=== PATIENT | male | born 1940 | race Caucasian/White ===

== ENCOUNTER 2019-05-22 12:55 | Inpatient (IN) ==
[2019-05-22 14:08] LABS: URINE SOURCE CLEAN CATCH
[2019-05-22 14:15] LABS: BASO# 0.02 X1000 (0.0-0.2); BASO% 0.2 % (0.0-0.8); EOS# 0.15 X1000 (0.0-0.7); EOS% 1.5 % (0.0-10.0); HEMATOCRIT 38.4 % (42.0-52.0); HEMOGLOBIN 13.1 g/dL (14.0-18.0); IMM GRAN# 0.02 X1000 (0.0-0.04); IMM GRAN% 0.2 % (0.0-0.5); LYMPH# 2.66 X1000 (1.2-3.4); LYMPH% 25.7 % (20.5-51.1); MCH 31.6 PG (27-31); MCHC 34.1 g/dL (33-37); MCV 92.5 FL (81-99); MONO# 1.41 X1000 (0.11-0.59); MONO% 13.6 % (1.7-9.3); MPV 10.5 FL (7.4-10.4); NEUT# 6.08 X1000 (1.4-6.5); NEUT% 58.8 % (42.2-75.2); PLT 153 X1000 (130-400); RBC 4.15 XMIL (4.7-6.1); WBC 10.34 X1000 (4.8-10.8)
[2019-05-22 14:16] LABS: BILIRUBIN URINE NEGATIVE (NEGATIVE); BLOOD URINE NEGATIVE (NEGATIVE); COLOR STRAW; GLUCOSE URINE NEGATIVE (NEGATIVE); KETONE URINE NEGATIVE (NEGATIVE); LEUKOCYTES URINE NEGATIVE (NEGATIVE); NITRITE URINE NEGATIVE (NEGATIVE); PH URINE 6.5; PROTEIN URINE NEGATIVE (NEGATIVE); SP GRAVITY URINE 1.005; TURBIDITY URINE CLEAR (CLEAR); UROBILINOGEN URINE NORMAL (NORMAL)
[2019-05-22 14:18] LABS: UR EPITHELIAL CELLS <10 /HPF (<10); URINE BACTERIA NEGATIVE /HPF; URINE RBC <10 /HPF (<10); URINE WBC <10 /HPF (<10)
[2019-05-22 14:37] LABS: AGAP 13; ALB/GLOB RATIO 1.3; ALBUMIN 3.8 g/dL (3.5-5.0); ALKALINE PHOSPHATASE 83 U/L (32-122); BUN 12 mg/dL (8-22); CALCIUM 9.6 mg/dL (8.8-10.2); CHLORIDE 95 mmol/L (98-107); COSMO 276; CREATININE 0.8 mg/dL (0.7-1.2); ESTIMATED GFR > 60; GLUCOSE 140 mg/dL (70-104); GOT 54 U/L (10-34); GPT 56 U/L (10-44); POTASSIUM 4.1 mmol/L (3.5-5.1); SODIUM 137 mmol/L (136-145); TCO2 29 mmol/L (25-35); TOTAL BILIRUBIN 0.76 mg/dL (0.20-1.00); TOTAL PROTEIN 6.7 g/dL (6.3-8.3)
[2019-05-22 14:47] LABS: UR AMPHETAMINES QUAL NONE DETECTED (NONE DETECT); UR BARBITUATES QUAL NONE DETECTED (NONE DETECT); UR BENZODIAZEPIN QUAL NONE DETECTED (NONE DETECT); UR CANNABINOIDS QUAL NONE DETECTED (NONE DETECT); UR COCAINE QUAL NONE DETECTED (NONE DETECT); UR METHADONE QUAL NONE DETECTED (NONE DETECT); UR OPIATES QUAL NONE DETECTED (NONE DETECT); UR OXYCODONE QUAL NONE DETECTED (NONE DETECT); UR PCP QUAL NONE DETECTED (NONE DETECT)
[2019-05-22] MEDS ORDERED: NS 1,000 ML IV ONE (17:37)
[2019-05-22] MEDS ORDERED: M.V.I.-12 10 ML, FOLIC ACID 1 MG, MAGNESIUM SULFATE 1 GM, THIAMINE 100 MG in NS 1,000 ML IV ONE (17:37)
--- NOTE | 2019-05-22 18:21 | Diag Imaging Result Doc PS360 ---
CHEST-2 VIEWS - 05/22/2019 INDICATION: short of breath COMPARISON: None FINDINGS: There are CABG changes. There is advanced COPD. There is mild cardiomegaly. There are increased markings in the lung bases. These are nonspecific, possibly representing mild edema or bronchitis. There is pleural-based scarring with blunting in the lung bases. IMPRESSION: COPD. Cardiomegaly. Nonspecific markings in the lung bases. Electronically signed by Ankur Vasquez 05/22/2019 6:18 PM
--- NOTE | 2019-05-22 18:32 | PROVIDER DOCUMENTATION ---
HPI-General Adult - General Chief Complaint: General Adult Stated Complaint: GENERAL ADULT Time Seen by Provider: 05/22/19 17:36 Source: patient Allergies/Adverse Reactions: Patient Allergies Allergy/AdvReac Type Severity Reaction Status Date / Time No Known Allergies Allergy Verified 05/22/19 18:21 Home Medications: Home Medication List Medication Instructions Recorded Confirmed Last Taken Type ATORVAstatin [Lipitor] 40 mg PO QHS 05/22/19 05/22/19 1 Day Ago History ~05/21/19 Carvedilol [Coreg] 3.125 mg PO QAM 05/22/19 05/22/19 1 Day Ago History ~05/21/19 Furosemide [Lasix] 40 mg PO DAILY 05/22/19 05/22/19 05/22/19 History Potassium Chloride 8 meq PO DAILY 05/22/19 05/22/19 1 Day Ago History ~05/21/19 - History of Present Illness -Gen Adult Nature of Presenting Problems: The pt is a 79 yr old M with a hx of HTN, s/p CABG 8 yrs ago, who presents today with a several day hx of "feeling dehydrated"and having an elevated HR. The pt reports this story began last week, when he indulged in a beer binge with some friends for several days. After he was done, he felt as though he was dry, and also noted that his HR seemed to be running higher than usual. After trying to replenish his fluids at home, he ended up at [facility] today, and was sent to the ED to have IV fluids. He denies chest pain or SOB, just states he didn't feel well. Onset/Duration: reports: 5 days ago Timing: reports: still present Modifying Factors: improves with: nothing Associated Symptoms: reports: denies symptoms Similar Symptoms Previously?: No Review of Systems - Adult - REVIEW OF SYSTEMS - ADULT Constitutional: reports: no symptoms reported Eyes: reports: no symptoms reported Ears, Nose, Mouth & Throat: reports: no symptoms reported Cardiovascular: reports: see HPI Respiratory: reports: no symptoms reported Gastrointestinal: reports: no symptoms reported Genitourinary: reports: no symptoms reported Musculoskeletal: reports: no symptoms reported Integumentary: reports: no symptoms reported Neurological: reports: no symptoms reported Psychiatric: reports: no symptoms reported Past History - Adult - PAST MEDICAL HISTORY-ADULT Review of Records: reports: Old Records Reviewed, Nursing Assessment Review Cardiovascular: reports: HTN - PRIOR SURGERIES/PROCEDURES Surgical/Procedure History: reports: reviewed, not pertinent - FAMILY HISTORY Family History: reviewed, not pertinent - SOCIAL HISTORY Substance Use: none presently/history of abuse Physical Exam-General - PHYSICAL EXAM-ADULT Initial Vital Signs Reviewed: Yes - CONSTITUTIONAL General Appearance: appears well, alert, no apparent distress - EYES Eyes: PERRL/EOMI - HEAD, EARS, NOSE, MOUTH & THROAT HENMT: normocephalic/atraumatic, moist mucous membranes - RESPIRATORY Respiratory: chest non-tender, lungs clear, normal breath sounds - CARDIOVASCULAR Cardiovascular: tachycardia - GASTROINTESTINAL (ABDOMEN) Abdominal Exam: normal bowel sounds, non tender, soft - MUSCULOSKELETAL Extremity: no pedal edema - SKIN Integumentary: normal color, normal turgor, warm/dry - NEUROLOGIC Neurologic: grossly normal, no motor/sensory deficits - PSYCHIATRIC Psych/Mental Status: normal mood/affect, oriented x 3 Progress - PLAN OF CARE/RESULTS Progress/Plan/Lab Results: Vital Signs - 8 hr 05/22/19 13:11 05/22/19 14:30 05/22/19 16:36 Temperature 97.6 F 97.6 F 97.4 F L Pulse Rate 83 102 H 113 H Respiratory Rate 16 20 20 Blood Pressure 150/53 119/71 112/71 O2 Sat by Pulse Oximetry 96 95 97 Laboratory Results - last 24 hr 05/22/19 05/22/19 05/22/19 13:36 13:36 13:36 WBC 10.34 RBC 4.15 L Hgb 13.1 L Hct 38.4 L MCV 92.5 MCH 31.6 H MCHC 34.1 RDW Std Deviation 14.0 Plt Count 153 MPV 10.5 H Immature Gran % (Auto) 0.2 Neut % (Auto) 58.8 Lymph % (Auto) 25.7 [place] % (Auto) 13.6 H Eos % (Auto) 1.5 Baso % (Auto) 0.2 Immature Gran # (Auto) 0.02 Neut # (Auto) 6.08 Lymph # (Auto) 2.66 [place] # (Auto) 1.41 H Eos # (Auto) 0.15 Baso # (Auto) 0.02 Sodium 137 Potassium 4.1 Chloride 95 L Carbon Dioxide 29 Anion Gap 13 BUN 12 Creatinine 0.8 Estimated GFR/1.73 m2 > 60 BUN/Creatinine Ratio 15 Glucose 140 H Calculated Osmolality 276 Calcium 9.6 Total Bilirubin 0.76 AST 54 H ALT 56 H Alkaline Phosphatase 83 Total Protein 6.7 Albumin 3.8 Globulin 2.9 Albumin/Globulin Ratio 1.3 Urine Source Urine Color Urine Turbidity Urine pH Ur Specific [place] Urine Protein Ur Glucose (Stick) Ur Ketones (Stick) Urine Blood Urine Nitrite Urine Bilirubin Urobilinogen Dipstick Urine Leukocytes Urine WBC (Auto) Urine RBC (Auto) U Epithel Cells (Auto) Urine Bacteria (Auto) Urine Opiates Screen Ur Oxycodone Screen Ur Methadone, Qual Ur Barbiturates Screen Ur Phencyclidine Scrn Ur Amphetamines Screen U Benzodiazepines Scrn Urine Cocaine Screen U Cannabinoids Screen Plasma/Serum Ethyl Alc 05/22/19 05/22/19 13:41 13:41 WBC RBC Hgb Hct MCV MCH MCHC RDW Std Deviation Plt Count MPV Immature Gran % (Auto) Neut % (Auto) Lymph % (Auto) [place] % (Auto) Eos % (Auto) Baso % (Auto) Immature Gran # (Auto) Neut # (Auto) Lymph # (Auto) [place] # (Auto) Eos # (Auto) Baso # (Auto) Sodium Potassium Chloride Carbon Dioxide Anion Gap BUN Creatinine Estimated GFR/1.73 m2 BUN/Creatinine Ratio Glucose Calculated Osmolality Calcium Total Bilirubin AST ALT Alkaline Phosphatase Total Protein Albumin Globulin Albumin/Globulin Ratio Urine Source CLEAN CATCH Urine Color STRAW Urine Turbidity CLEAR Urine pH 6.5 Ur Specific [place] 1.005 Urine Protein NEGATIVE Ur Glucose (Stick) NEGATIVE Ur Ketones (Stick) NEGATIVE Urine Blood NEGATIVE Urine Nitrite NEGATIVE Urine Bilirubin NEGATIVE Urobilinogen Dipstick NORMAL Urine Leukocytes NEGATIVE Urine WBC (Auto) <10 Urine RBC (Auto) <10 U Epithel Cells (Auto) <10 Urine Bacteria (Auto) NEGATIVE Urine Opiates Screen NONE DETECTED Ur Oxycodone Screen NONE DETECTED Ur Methadone, Qual NONE DETECTED Ur Barbiturates Screen NONE DETECTED Ur Phencyclidine Scrn NONE DETECTED Ur Amphetamines Screen NONE DETECTED U Benzodiazepines Scrn NONE DETECTED Urine Cocaine Screen NONE DETECTED U Cannabinoids Screen NONE DETECTED Plasma/Serum Ethyl Alc Orders Category Date Time Status Nursing- Obtain EKG ONCE Care 05/22/19 17:38 Active Nursing- Obtain EKG ONCE Care 05/22/19 17:38 Active CHEST-2 VIEWS [RAD] Stat Exams 05/22/19 17:38 Completed ALCOHOL BLOOD Stat Lab 05/22/19 13:36 Completed CBC WITH ELECTRONIC DIFF [HEME] Stat Lab 05/22/19 13:36 Completed CK PROFILE [SP CHEM] Stat Lab 05/22/19 17:38 Ordered COMPREHENSIVE METABOLIC PANEL [CHEM] Stat Lab 05/22/19 13:36 Completed FOLATE Stat Lab 05/22/19 17:38 Ordered MAGNESIUM [CHEM] Stat Lab 05/22/19 17:38 Ordered TROPONIN T HIGH SENSITIVITY Stat Lab 05/22/19 17:38 Ordered UA NIMS W/REFLEX CULT [URINALYSIS] Stat Lab 05/22/19 13:41 Completed URINE DRUG SCREEN Stat Lab 05/22/19 13:41 Completed 0.9% Sodium Chloride Inj [Ns] 1,000 ml Med 05/22/19 17:37 Active IV 999 mls/hr Mvi [M.v.i.-12] 10 ml Med 05/22/19 17:37 Active Folic Acid 1 mg Magnesium Sulfate 1 gm Thiamine 100 mg 0.9% Sodium Chloride Inj [Ns] 1,000 ml IV NOW EKG [EKG] Stat Ther 05/22/19 17:38 Ordered Pt's labs are generally unremarkable; CXR has no significant acute findings, but an EKG reveals atrial fibrillation with RBBB, and there are no prior EKGs to compare this to. The pt states he has never been told he had atrial fibrillation. Discussed the case with the hospitalist - give this finding, and it's likely new onset, pt will be admitted for further management. Spoke with pt, who did want to go home, but also understands the situation and is willing to stay. Result Diagrams: 05/22/19 13:36 05/22/19 13:36 - EKG 1 Time of EKG reading by physician:: 19:15 EKG Read and Signed by:: Annie Alvarez EKG Interpretation (*Must complete 3 of following elements*): Abnormal Rate: 97 Rhythm: atrial fibrillation [place]: normal QRS: RBB ST Wave: non-specific ST changes Prior EKG Comparison: no prior EKG - XRAY 1 XRAY Study: Chest Impression: See EMR Report (COPD, Cardiomegaly) - CONSULTS/PCP/HOSPITALIST Notification #1 *Consult/PCP/Hospitalist*: Dr. Field Time Discussed: 21:24 Consult Disposition: Admit Departure - Departure Date of Disposition Decision: 05/22/19 Time of Disposition Decision: 21:26 DIAGNOSIS: Atrial fibrillation Qualifiers: Atrial fibrillation type: unspecified Qualified Code(s): I48.91 - Unspecified atrial fibrillation Disposition: ADMITTED INPATIENT 09 Certified Medical Emergency: Emergent Condition: Fair Referrals and Follow-Ups: Denver Herrera MD [Primary Care Provider] - Discharge Education: Steps to Quit Smoking, [id number] - Critical Care Note This patient required my direct & personal management of CC.: No Attestation - Physician/ KALANI Attestation Patient care was provided by Advanced Practice Provider:: No The physician spent face to face time with patient:: Yes Advanced Practice Provider documentation review:: Supervising physician onsite and consulted in the evaluation and care of this patient. The physician did have a face to face encounter with the patient.
[2019-05-22 19:26] LABS: MAGNESIUM 2.2 mg/dL (1.5-2.7)
[2019-05-22 19:43] LABS: CK INDEX 1.6 (0.0-2.5); CK-MB 5.03 ng/mL (0.0-5.0)
[2019-05-22] MEDS ORDERED: ZOFRAN IV PRN (21:25)
[2019-05-22] MEDS ORDERED: ATIVAN IV PRN (21:44)
[2019-05-22] MEDS ORDERED: XOPENEX NEB INH PRN (22:04)
[2019-05-22] MEDS ORDERED: NS NEB INH SCH (22:15)
[2019-05-22 22:18] LABS: CK INDEX 1.6 (0.0-2.5); CK-MB 4.96 ng/mL (0.0-5.0)
[2019-05-22] MEDS: COREG PO SCH (23:41)
[2019-05-22] MEDS: NS 1,000 ML IV SCH (23:42)
--- NOTE | 2019-05-23 01:30 | HISTORY AND PHYSICAL ---
PRIMARY CARE PROVIDER: Dr. Miranda. MACHINE SILK SCREEN PRINTER: Dr. Anders. CHIEF COMPLAINT: Dehydrated. HISTORY OF PRESENT ILLNESS: Mr. Brunson is a 79-year-old male who reports his only past medical history was a CABG that he had 8 years ago. He has been on the same medications since that time of his discharge. He reports that he binge drinks about 4 times per year. He reports about a week ago he went on a big binger with some of his friends and he was having about a 12 pack of beer per day. His last drink was last . He went to the Urgent Care because he felt dehydrated, they told him that his heart rate was fast. He did not feel that he could drive to the ED so EMS was called. He was found to be in atrial fibrillation, but not RVR. His chest x- ray showed COPD and cardiomegaly, mild transaminitis. Alcohol level was 0. Tox screen was clean. Two sets of troponins have been at 26 and 25. CKs are 324 and 302. He was given a banana bag in the ED. We will continue with IV hydration. I will give him a dose of his home Coreg now, continue him on IV fluids throughout the night. We will check an echocardiogram and consult Cardiology in the a.m. We will place him on PVC, watch him closely for any atrial fibrillation with RVR or DTs. PAST MEDICAL HISTORY: Coronary artery disease status post CABG 8 years ago. Other than that he was really not sure what his past medical history wa. All his medications he reports have not been changed since he got discharged after his CABG. PAST SURGERY HISTORY: CABG 8 years ago, appendectomy, skin cancer removal that he reports was malignant from his lower abdomen. FAMILY HISTORY: Brother with a CABG. Mother from breast cancer. SOCIAL HISTORY: He reports he does not drink in general; however, he does binge drink he reports about 4 times a year. He does do 10 to 15 cigarettes per day and has done so since the age of 16 or 17. He is . He has 1 child who is grown. He currently lives alone. He is retired for from being an industrial electrician journeyman. HOME MEDICATIONS: 1. Coreg 3.125 mg p.o. q.a.m. 2. Lipitor 40 mg p.o. at bedtime. 3. Lasix 40 mg p.o. daily. 4. Potassium chloride 8 mEq p.o. daily. PHYSICAL EXAMINATION: VITAL SIGNS: Temperature is 97.6 degrees, heart rate 104, respirations 21, blood pressure 113/63, O2 is 98% on room air. GENERAL: Mr. Brunson is a pleasant 79-year-old male who is sitting on the stretcher in no acute distress. HEENT: Atraumatic, normocephalic. PERRL. NECK: Supple. Trachea midline. CARDIOVASCULAR: S1, S2 appreciated. No murmurs, gallops or rubs noted. RESPIRATORY: Lung sounds some very mild expiratory wheezes to the upper bases. He reports no history of COPD; however, his chest x-ray does show COPD, not on any inhalers at home. ABDOMEN: Soft, nontender, nondistended. Positive bowel sounds in 4 quadrants. EXTREMITIES: Lower extremities negative for edema. DIAGNOSTIC DATA: Chest x-ray, COPD, cardiomegaly. EKG showed atrial fibrillation without RVR at 120 beats per minute. LABORATORY DATA: White count 10, hemoglobin and hematocrit 13 and 38, platelet count is 153,000. Sodium 137, potassium 4.1, BUN 12, creatinine 0.8, blood glucose is 140. AST 54. ALT 56. CK 324. Second troponin is 25. Urinalysis is negative. Alcohol level none. Toxicology screen is clean. ASSESSMENT AND PLAN: 1. New onset atrial fibrillation, he is not in RVR. We will give him a dose of home Coreg now. Check an echocardiogram and consult Cardiology in the a.m. We will watch him on PVC. 2. Binge drinking on beer about 4 times per year. His last binge was last week. His last drink was last . He was given a banana bag in the ED. We will provide him p.r.n. Ativan, watch him closely for any DTs. 3. Coronary artery disease status post CABG 8 years ago. He reports no medication changes since that time. 4. Tobacco use and abuse. Will need to continued education on smoking cessation. 5. Known abdominal aortic aneurysm. His last aortic ultrasound was on 09/01/2017 that showed the distal aorta measured 2.7 x 2.9 cm, similar to his prior exam in 2017. 6. Undiagnosed COPD. He does have some mild expiratory wheezes most heard in the upper bases bilaterally. He does not report any difficulty breathing. He did not know he was wheezing. He is not on any inhalers at home. We will provide him supplemental O2 as needed and Xopenex p.r.n. 7. Cardiomegaly seen on chest x-ray. I do not have a current echocardiogram. We will order an echocardiogram for in the morning. 8. Mild transaminitis possibly secondary to his most recent binge drinking. We will recheck in the a.m. We will do an abdominal ultrasound if needed in the a.m. He does not complain of any abdominal pain. 9. Further recommendation to follow physician evaluation, laboratory and diagnostic data. Dictated by PRANEETH Og for Pawel Field MD cc: MD Wade Fontanez MD Clement Okinedo, MD
[2019-05-23] MEDS: NS 1,000 ML IV SCH (04:41)
--- NOTE | 2019-05-23 05:44 | EKG Report ---
Test Performed on : 05/22/2019 7:13:38 PM Test Reason : Chest Pain Blood Pressure : / mmHG Vent. Rate : 097 BPM Atrial Rate : 105 BPM P-R Int : 000 ms QRS Dur : 140 ms QT Int : 410 ms P-R-T Axes : 000 135 013 degrees QTc Int : 520 ms Atrial fibrillation. Right bundle branch block Possible Lateral infarct , age undetermined Inferior infarct , age undetermined Abnormal ECG No previous ECGs available Unconfirmed Result
[2019-05-23 06:18] LABS: BASO# 0.01 X1000 (0.0-0.2); BASO% 0.1 % (0.0-0.8); EOS# 0.18 X1000 (0.0-0.7); EOS% 2.4 % (0.0-10.0); HEMATOCRIT 34.2 % (42.0-52.0); HEMOGLOBIN 11.2 g/dL (14.0-18.0); LYMPH# 2.27 X1000 (1.2-3.4); LYMPH% 30.2 % (20.5-51.1); MCH 31.2 PG (27-31); MCHC 32.7 g/dL (33-37); MCV 95.3 FL (81-99); MONO# 1.25 X1000 (0.11-0.59); MONO% 16.6 % (1.7-9.3); MPV 10.2 FL (7.4-10.4); NEUT# 3.81 X1000 (1.4-6.5); NEUT% 50.7 % (42.2-75.2); PLT 127 X1000 (130-400); RBC 3.59 XMIL (4.7-6.1); RDW 14.3 % (11.5-14.5); WBC 7.52 X1000 (4.8-10.8)
[2019-05-23 06:33] LABS: AGAP 9; ALB/GLOB RATIO 1.3; ALBUMIN 3.1 g/dL (3.5-5.0); ALKALINE PHOSPHATASE 64 U/L (32-122); BUN 10 mg/dL (8-22); CALCIUM 8.5 mg/dL (8.8-10.2); CHLORIDE 103 mmol/L (98-107); COSMO 279; CREATININE 0.8 mg/dL (0.7-1.2); ESTIMATED GFR > 60; GLUCOSE 100 mg/dL (70-104); GOT 38 U/L (10-34); GPT 41 U/L (10-44); MAGNESIUM 2.3 mg/dL (1.5-2.7); POTASSIUM 3.9 mmol/L (3.5-5.1); SODIUM 140 mmol/L (136-145); TCO2 28 mmol/L (25-35); TOTAL PROTEIN 5.4 g/dL (6.3-8.3)
--- NOTE | 2019-05-23 07:33 | Diag Imaging Result Doc PS360 ---
CHEST-PORTABLE - 05/23/2019 INDICATION: follow up COMPARISON: 05/22/2019 FINDINGS: There is no change from prior. IMPRESSION: No change from prior. Electronically signed by Ankur Vasquez 05/23/2019 7:31 AM
--- NOTE | 2019-05-23 08:15 | EKG Report ---
Test Performed on : 05/23/2019 07:33:35 AM Test Reason : afib Blood Pressure : / mmHG Vent. Rate : 076 BPM Atrial Rate : 098 BPM P-R Int : 000 ms QRS Dur : 148 ms QT Int : 422 ms P-R-T Axes : 000 159 001 degrees QTc Int : 474 ms Atrial fibrillation. with a competing junctional pacemaker. Right bundle branch block Lateral infarct (cited on or before 22-MAY-2019) Possible Inferior infarct (cited on or before 22-MAY-2019) Abnormal ECG When compared with ECG of 22-MAY-2019 19:13, (Unconfirmed) No significant change was found Confirmed by Jimenez VILLALTA, Tye Munoz ([id number]) on 05/24/2019 2:34:02 PM
[2019-05-23] MEDS: COREG PO SCH ×2 (09:50→21:11)
[2019-05-23] MEDS: MICRO-K PO SCH (09:50)
[2019-05-23] MEDS: LASIX PO SCH (09:50)
--- NOTE | 2019-05-23 10:38 | PROGRESS NOTE ---
DATE: 05/23/2019 SUBJECTIVE: This patient is sitting on the bed. He is not complaining of chest pain or shortness of breath. He is still in atrial fibrillation, not RVR. Basically, this patient came to the emergency department because he felt dehydrated due to a drinking binge. He is feeling a little bit better now. His CK level was elevated, likely due to dehydration. He was found to be in atrial fibrillation, but not RVR. X-ray showed possible COPD and cardiomegaly. We asked for an echocardiogram. We put this patient on fluids, but also he has been placed on Lasix, so I will wait for Cardiology recommendations about this. He is a smoker. OBJECTIVE: Vital Signs: Temperature 97.3 degrees, pulse 94, respiratory rate 20, blood pressure 126/72, oxygen saturation 94% on room air. HEENT: Head normocephalic. No trauma. PERRLA. Neck: Supple. Central trachea. Cardiovascular: Irregularly irregular rate and rhythm. Chest: Clear to auscultation. Some end expiratory wheezing, faint. Abdomen: Soft, nontender, nondistended. No hepatosplenomegaly. Extremities: Trace lower extremity edema. No clubbing. No cyanosis. Neurological: The patient is awake, alert. He is oriented x3. No focal deficits. LABORATORY DATA: WBC 7.5, hemoglobin 11.2, hematocrit 34.2, platelets 127,000. Sodium 140, potassium 3.9, chloride 103, bicarbonate 28, BUN 10, creatinine 0.8, glucose 100, calcium 8.5. AST 38, ALT 41, alkaline phosphatase 64, albumin 3.1. ASSESSMENT AND PLAN: 1. New-onset atrial fibrillation with no rapid ventricular response. I will continue with the same management for now pending Cardiology evaluation and recommendations. Probably this patient will need to be on anticoagulation from now on, but he has an abdominal aneurysm. 2. Binge drinking on beer about 4 times a year. His last binge was last week, and he came in because he was basically dehydrated. He was given a banana bag in the emergency department. He will be on as needed Ativan, and we will continue to monitor this patient closely for withdrawals. 3. History of coronary artery disease, status post coronary artery bypass graft 8 years ago. Aware. 4. Tobacco use and abuse. This patient has been highly advised against tobacco use. I will continue with daily cessation education. 5. Known abdominal aortic aneurysm. His last ultrasound apparently was on 09/01/2017 and showed that the distal aorta measured 2.7 x 2.9 cm, similar to prior exam in 1017. 6. Possible chronic obstructive pulmonary disease. Continue with the same management. 7. Cardiomegaly seen on the x-ray. Pending echocardiogram. 8. Mild transaminitis, likely secondary to alcohol use. It is getting better. cc: Esteban Chahal MD
--- NOTE | 2019-05-23 10:55 | EKG Report ---
Test Performed on : 05/23/2019 10:31:45 AM Test Reason : afib Blood Pressure : / mmHG Vent. Rate : 091 BPM Atrial Rate : 100 BPM P-R Int : 000 ms QRS Dur : 138 ms QT Int : 400 ms P-R-T Axes : 000 218 016 degrees QTc Int : 492 ms Undetermined rhythm Right bundle branch block Inferior infarct (cited on or before 22-MAY-2019) Abnormal ECG When compared with ECG of 23-MAY-2019 07:33, (Unconfirmed) Current undetermined rhythm precludes rhythm comparison, needs review Questionable change in initial forces of Inferior leads Confirmed by Jimenez VILLALTA, Tye Munoz ([id number]) on 05/24/2019 2:34:32 PM
--- NOTE | 2019-05-23 12:23 | CARDIOLOGY CONSULTATION ---
DATE: 05/23/2019 REASON FOR CONSULTATION: Cardiology was consulted for atrial fibrillation. HISTORY OF PRESENT ILLNESS: Mr. Brunson is a 79-year-old gentleman who has history of coronary artery disease, coronary artery bypass grafting, hypertension. Procedure done 8 years back. He comes to the emergency room as he says he was dehydrated. He reports having episodes of binge drinking for the last one week. He has been drinking 12 beers a day with his friends. He went to the urgent care because he felt dehydrated. He also had episodes of palpitations. He was found to be in atrial fibrillation, came to the emergency room and was admitted. Chest x-ray revealed cardiomegaly, COPD. Mild transaminitis, alcohol level was negative. Tox screen was clean. Two sets of troponins were negative. CKs were 324 and 308. He was given a banana bag and was continued with IV hydration. He denies any chest pain suggestive of angina. He had episodes of these palpitations which he had noticed during his binge drinking. REVIEW OF SYSTEMS: A 14-point review of systems was done. GI System: There is no history of nausea, vomiting, diarrhea. There is no history of hematemesis or melena. Central Nervous System: No focal weakness to suggest a CVA or TIA. Genitourinary System: There is no dysuria or hematuria. PAST MEDICAL HISTORY: 1. Coronary artery disease status post coronary artery bypass grafting with left internal mammary artery to left anterior descending artery, saphenous vein graft to obtuse marginal. This was done in 2008. Prior to that, he had myocardial infarction and stent placement in 1998. 2. Hypertension. 3. Hyperlipidemia. 4. Alcohol abuse. 5. History of tobacco abuse. HOME MEDICATIONS: 1. Aspirin. 2. Klor-Con. 3. Lasix 20 mg a day. 4. Coreg 12.5. 5. Lipitor 40 mg a day. ALLERGIES: He is not known to be allergic to any medication. PHYSICAL EXAMINATION: Cardiac: Blood pressure was 112/60. First and second heart sounds were heard. There was no S3 gallop. Respiratory System: Normal air entry. There is no crepitations or rhonchi. Abdomen: Soft, nontender. There was no guarding or rigidity. Bowel sounds were heard. Central Nervous System: Alert and was moving all 4 extremities. Examination of extremities revealed no pedal edema. HEENT: Atraumatic, normocephalic. Pupils were equal and reacting to light. LABORATORY EXAMINATION: Sodium 140, potassium 3.9, BUN 10, creatinine 0.8. Cardiac enzymes troponin T high sensitivity was negative. WBC 7.5, hemoglobin 11.2, hematocrit 34, platelet count of 127. ASSESSMENT AND PLAN: Mr. Marcial Brunson is a 42-year-old gentleman with history of coronary artery disease, coronary artery bypass grafting, hypertension, hyperlipidemia. He smokes and had an episode of binge drinking as above. He found himself noted to be dehydrated. He came to the emergency and was noted to be in atrial fibrillation. RECOMMENDATIONS: 1. He was on Coreg 12.5 mg twice daily. We will restart him on Coreg. 2. EKG revealed atrial fibrillation, right bundle branch block, nonspecific ST-T changes. He does not complain of chest pain. Cardiac enzymes are negative. We will get an echocardiogram to assess cardiac and valvular function. We will also get a Cardiolite stress test to assess for and rule out ischemia. 3. As far as stroke prophylaxis is concerned, he has elevated CHADS2-VASc score. I will decrease his aspirin to 81 mg a day and add Eliquis 5 mg twice daily. 4. We will make followup arrangements to see Dr. Anders as an outpatient. 5. As far as atrial fibrillation is concerned, I suspect it is secondary to his binge drinking, which probably will revert to normal rhythm. Regardless we will follow up as an outpatient. cc: Wayne Miranda MD
[2019-05-23] MEDS: ASPIRIN PO SCH (12:59)
[2019-05-23] MEDS: MIRALAX PO SCH ×2 (18:15→21:10)
[2019-05-23] MEDS ORDERED: LIPITOR PO SCH (21:00)
[2019-05-23] MEDS: ELIQUIS PO SCH (21:11)
--- NOTE | 2019-05-24 07:22 | EKG Report ---
Test Performed on : 05/24/2019 06:50:15 AM Test Reason : afib Blood Pressure : / mmHG Vent. Rate : 108 BPM Atrial Rate : 113 BPM P-R Int : 000 ms QRS Dur : 142 ms QT Int : 370 ms P-R-T Axes : 000 188 -15 degrees QTc Int : 495 ms Atrial fibrillation. with rapid ventricular response. Right bundle branch block Inferior infarct (cited on or before 22-MAY-2019) Abnormal ECG When compared with ECG of 23-MAY-2019 10:31, (Unconfirmed) Previous ECG has undetermined rhythm, needs review Inverted T waves have replaced nonspecific T wave abnormality in Inferior leads Confirmed by Jimenez VILLALTA, Tye Munoz ([id number]) on 05/24/2019 2:35:46 PM
[2019-05-24] MEDS: MICRO-K PO SCH (08:16)
[2019-05-24] MEDS: ASPIRIN PO SCH (08:16)
[2019-05-24] MEDS: ELIQUIS PO SCH (08:17)
[2019-05-24] MEDS ORDERED: LEXISCAN ONE (08:30)
[2019-05-24] MEDS: MIRALAX PO SCH (10:30)
[2019-05-24] MEDS: LASIX PO SCH (10:30)
[2019-05-24] MEDS: COREG PO SCH (10:30)
--- NOTE | 2019-05-24 10:49 | ECHO REPORT ---
ORDER DATE: 05/23/2019 INDICATION: New atrial fibrillation. FINDINGS: 1. There is mild biatrial enlargement. 2. Mild tricuspid regurgitation. The RV systolic pressure is 36. 3. Normal RV size and systolic function. 4. No significant pulmonic insufficiency. 5. No mitral prolapse. Suggestion of [id number] mitral regurgitation. No clear evidence of stenosis. 6. Normal LV size, end-diastolic dimension of 4.8 cm. Mild left ventricular hypertrophy with a interventricular septal wall thickness of 1.3 cm. Normal LV systolic function. Estimated EF is 65% with normal wall motion. 7. Aortic valve is somewhat calcific but it seems to open reasonably well. There is no significant stenosis or insufficiency. 8. Aorta appears normal in visualized segments. 9. No pericardial effusion seen. 10. During the course of the study, the patient appears to be in normal sinus rhythm. cc: Bereket Campa MD
[2019-05-24 12:30] VITALS: BP 122/62
--- NOTE | 2019-05-24 13:43 | Diag Imaging Result Document ---
PROCEDURE NAME: MYOCARDIAL PERF SCAN, STR/REST - 05/23/2019 PROCEDURE: Lexiscan Cardiolite stress test. DESCRIPTION OF PROCEDURE IN DETAIL: Baseline electrocardiogram revealed atrial fibrillation, right bundle branch block. Cardiolite was injected. Gated SPECT images were obtained in standard views. Images were obtained in standard views. There was no chest pain. Stress electrocardiogram was negative for ischemia. Images revealed chest wall attenuation. There is severe grade, large-sized, fixed defect in the inferior wall diagnostic of infarct or scar. In addition, there is fixed defect in the inferolateral wall diagnostic of infarct or scar. There is also a fixed defect in the left ventricular apex. There is fixed defect in the distal anteroapical wall. There is no evidence of ischemia. Left ventricular ejection fraction by gated SPECT was 53%. CONCLUSIONS: 1. No chest pain. 2. Baseline atrial fibrillation, negative Lexiscan stress electrocardiogram. 3. Myocardial perfusion images revealed no evidence of ischemia. 4. There is large size, fixed defect in the inferior wall, in the distal anteroapical wall, and in the inferolateral wall diagnostic of infarct or scar. Left ventricular ejection fraction by gated SPECT was 53%. cc: MD Meak Fontanez PA
--- NOTE | 2019-05-25 14:28 | DISCHARGE SUMMARY ---
ADMISSION DATE: 05/22/2019 DISCHARGE DATE: 05/24/2019 DISCHARGE DIAGNOSES: 1. New onset atrial fibrillation. 2. Dehydration, resolved. 3. Binge drinking on beer for a few days, 4 times a year or so. 4. History of coronary artery disease status post coronary artery bypass graft 8 years ago. 5. Tobacco use and abuse. 6. Abdominal aortic aneurysm. 7. Possible chronic obstructive pulmonary disease. 8. Cardiomegaly seen on x-ray. 9. Mild transaminitis. PROCEDURES PERFORMED: 1. Chest x-ray dated 05/22/2019 impression: COPD, cardiomegaly, nonspecific markings in the lung bases. 2. Chest x-ray dated 05/23/2019 impression: No change from prior. 3. Echocardiogram dated 05/23/2019: Ejection fraction 65% with normal wall motion. Mild to moderate mitral regurgitation. No evidence of stenosis. Right ventricular systolic pressure is 36. 4. Stress test dated 05/23/2019 conclusion: No chest pain, baseline atrial fibrillation, negative Lexiscan stress electrocardiogram, myocardial perfusion images revealed no evidence of ischemia. There is a large fixed defect in the inferior wall, in the distal anteroapical wall, and the inferolateral wall diagnostic of infarct or scar. The left ventricular ejection fraction by gated SPECT was 53%. HOSPITAL COURSE: A 79-year-old male with a past medical history of CABG 8 years ago, who has been on the same medications since the time of his discharge. He reported that he binge drinks about 4 times per year. He was admitted on 05/22/2019. He reported that about a week ago he went to a big binger with some of his friends, and he was having about a 12 pack of beer per day. His last drink was last . He went to the Urgent Care because he felt dehydrated. They told him that his heart rate was fast. He did not feel that he could drive to the ED, so EMS was called. He was found to be in atrial fibrillation, but no RVR. His chest x-ray showed COPD, cardiomegaly, mild transaminitis. Alcohol level was zero. Toxicology screen was clean. Two sets of troponins have been at 26 and 25, CK 324 and 302. He was given a banana bag in the ED. He started getting some IV hydration. We started this patient back on his medications. Cardiology Department was consulted. They continue with his home medication and, on top of that, they started this patient on anticoagulation. The patient today is asymptomatic. We did an echocardiogram and also a stress test that did not show any acute process, but he does have a fixed defect already. He will be treated medically and he will follow up with Dr. Anders as an outpatient. PHYSICAL EXAMINATION: Vital Signs: Temperature 97.4 degrees, pulse 80, respiratory rate 20, blood pressure 122/62, oxygen saturation 97% on room air. HEENT: Head normocephalic, no trauma. PERRLA. Neck: Neck is supple. No JVD. No masses. Central trachea. Chest: Irregularly irregular rate and rhythm. Chest clear to auscultation. No wheezing, no rales. Abdomen: Soft, nontender, nondistended. No hepatosplenomegaly. Extremities: Trace lower extremity edema. No clubbing. No cyanosis. Neurological examination: The patient is awake, alert. He is oriented x3. No focal deficits. LABORATORY: From yesterday WBC 7.5, hemoglobin 11.2, hematocrit 34.2, platelets 127. Sodium 140, potassium 3.9, chloride 103, bicarbonate 28. BUN 10, creatinine 0.8, glucose 100, calcium 8.5. AST 38, ALT 41, alkaline phosphatase 64, albumin 3.1. DISCHARGE MEDICATIONS: 1. Eliquis 5 mg p.o. b.i.d. 2. Aspirin 81 mg p.o. daily. 3. Lipitor 40 mg p.o. at bedtime. 4. Coreg 3.125 mg b.i.d. 5. Lasix 40 mg p.o. daily. 6. Potassium chloride 80 mEq p.o. daily. TIME DISCHARGING THIS PATIENT: 20 minutes. cc: Esteban Chahal MD
== END 2019-05-24 15:53 | disposition home or self-care (01) | DRG 309 ==
LOC: SUPCPDRO → ED 12:55 → EDIPHOLD 21:44 → SUATTDRO 21:44 → 2N 05-23 02:52
PROVIDERS: ATTEND Internal Medicine